=== PATIENT | male | born 1985 | race Caucasian/White ===

== ENCOUNTER 2017-11-06 12:59 | Emergency (ER) | payer SELFPAY ==
[~2017-11-06] VITALS: Ht 185.4 cm; Wt 81.6 kg
--- NOTE | 2017-11-06 14:12 | NUR ---
WRITTEN AND VERBAL ACI GIVEN TO PT IN [place] BY .
[2017-11-06] MEDS ORDERED: TDAP DIPH,PERTUSS,TET VAC/PF 0.5 ML DISP.SYRIN IM ONE (14:15)
== END 2017-11-06 14:13 | disposition home or self-care (01) ==
LOC: ER 12:59
DX: S61.201A Unspecified open wound of left index finger without damage to nail, initial encounter (principal); W26.0XXA Contact with knife, initial encounter; Y93.89 Activity, other specified; Y92.89 Other specified places as the place of occurrence of the external cause; Y99.8 Other external cause status
CPT/HCPCS: A4217; A4663

== ENCOUNTER 2017-11-10 16:29 | Emergency (ER) | payer SELFPAY ==
--- NOTE | 2017-11-10 17:09 | NUR ---
CALLED 3 TIMES AND NO ANSWER. PT LWBT
== END 2017-11-10 17:11 | disposition left against medical advice (07) ==
LOC: ER 16:29
DX: Z53.21 Procedure and treatment not carried out due to patient leaving prior to being seen by health care provider (principal)